=== PATIENT | female | born 1940 | race Caucasian/White ===

== ENCOUNTER 2016-09-22 13:24 | Day surgery (SDC) | payer MEDICARE, BC ==
[2016-09-22 13:37] VITALS: BP 157/76; PULSE 85; RESP 20; TEMP 97.4
== END 2016-09-22 14:50 | disposition home or self-care (01) ==
LOC: RADPROMAIN 13:24
PROVIDERS: ATTEND Internal Medicine Hematology & Oncology
DX: Z53.9 Procedure and treatment not carried out, unspecified reason (principal)

== ENCOUNTER → 2016-09-22 | Outpatient (CLI) | payer MEDICARE ==
[2016-09-22 11:21] LABS: Blood Urea Nitrogen 13 mg/dL (7-17); Non-African American GFR(MDRD) 53 (>60 ml/min/1.73 sqM)
--- NOTE | 2016-09-22 13:19 | CT ---
EXAMINATION TYPE: CT ChestAbdPelvis w con DATE OF EXAM: 09/22/2016 COMPARISON: NONE HISTORY: Rt supraclavicular swelling, history of colon and breast CA CT DLP: 1140.7 mGycm. Automated Exposure Control for Dose Reduction was Utilized. CONTRAST: CT scan of the thorax, abdomen and pelvis is performed with IV Contrast, patient injected with 100 mL of Visipaque 320. FINDINGS: LUNGS: Linear scarring left lower lobe is present near diaphragm. No suspicious parenchymal nodule or mass is present bilaterally. No pleural effusion or pneumothorax is noted. Tracheobronchial tree is patent. MEDIASTINUM: There are suspicious thoracic lymph nodes. For reference there is 1.6 x 1.4 cm prevascul ar lymph node on axial image 30. There additional suspicious lymph nodes in the paratracheal region m ost prominent on axial image 27. There are prominent but subcentimeter bilateral hilar, subcarinal, a nd AP window lymph nodes No cardiomegaly is seen. Trace pericardial effusion is present. There is na tive coronary artery calcification is seen which is noted marker for coronary artery disease. OTHER: Metallic BB is placed at area of clinical concern in right supraclavicular region on axial yolanda ge 8. There is 2.2 x 2.9 cm heterogeneous hypodense mass at this level seen on axial image 8. Just in ferior and medial to this there is second 2.2 x 2.6 cm heterogeneous mass on axial image 12. There ar e adjacent suspicious subcentimeter masses. Findings likely reflect metastatic adenopathy with some c entral necrotic portion felt present in smaller lesions. There are prominent but subcentimeter left s upraclavicular lymph node seen lateral to left thyroid gland. Left sided mastectomy is noted. No suspicious axillary adenopathy is seen. LIVER/GB: No significant abnormality is appreciated. PANCREAS: No significant abnormality is seen. SPLEEN: No significant abnormality is seen. ADRENALS: No significant abnormality is seen. KIDNEYS: There are staghorn type calculi in the right-sided collecting system. Largest measures 2.4 c m on long axis on axial image 77. There is fullness of right renal pelvis with mild suspicious mucosa l enhancement of the collecting system. No delayed excretion is seen. No significant hydronephrosis i s evident. Bladder is poorly distended with mild concentric wall thickening, correlate for cystitis a dvised. There is a circumaortic left renal vein which is normal variant. BOWEL: Oral contrast reaches level of rectum. There is postsurgical change from near-total colectomy. There is prominent anastomosis left mid to lower abdomen anteriorly on axial image 86. There is vent ral wall hernia just below umbilicus containing nonobstructive contrast-filled small bowel loop on ax ial image 95, neck of hernia is roughly 3.5 cm. GENITAL ORGANS: Uterus is anteverted in shape and within normal limits in size. Both ovaries are pres ent near axial image 98 and not suspiciously enlarged. There is small to moderate amount of free flui d in pelvic cul-de-sac on axial image 107, abnormal finding in postmenopausal female LYMPH NODES: There are suspicious mesenteric lymph nodes with some ill-defined fluid throughout the m id abdomen. For reference right mid abdominal mesenteric lymph node measures 1.5 x 1.1 cm on axial im age 76. More heterogeneous posterior left mid rounded density favor mesenteric adenopathy measures 2. 9 x 1.4 cm on axial image 78. There is additional prominent but subcentimeter retroperitoneal lymph n odes along the course of the aorta and IVC as well as iliac chain vessels. There is enlarged lymph no de right external iliac vein measuring 2.2 x 1.2 cm on axial image 104. OSSEOUS STRUCTURES: Osseous structures are demineralized. Underlying scoliosis is present. There is u nderlying multilevel disc space narrowing and vacuum disc phenomenon with spurring. Moderate joint sp cinthya loss and spurring both hips is present. OTHER: There is mild to moderate calcified atherosclerotic change of aorta extending branch vessels. Some mild increased fluid throughout the mesentery is present. IMPRESSION: 1. Corresponding to area of clinical concern there is abnormal adenopathy or metastatic disease prese nt. There is probable thoracic adenopathy as detailed above. There is probable mesenteric metastatic disease or adenopathy. There is probable right external iliac chain adenopathy. Consider correlating with outside PET/CT. Supraclavicular lymph nodes or masses can be sampled if desired for tissue confi rmation. 2. Staghorn-type right-sided renal calculus noted. Possible cystitis clinical correlation advised. 3. No bowel obstruction is seen. Ventral wall hernia containing bowel is noted. Postsurgical changes and colon are identified. 4. Mild mesenteric edema with more focal small to moderate fluid in pelvis of uncertain etiology. Con fruit vendor neoplastic source.
--- NOTE | 2016-09-22 15:28 | US ---
EXAMINATION TYPE: US biopsy lymph node DATE OF EXAM: 09/22/2016 HISTORY: Supraclavicular right-sided mass. FINDINGS: Maximal barrier technique was utilized. The skin overlying a suitable path to the patient' s mass was localized with ultrasound and the overlying skin prepped and draped. Ultrasound was utili zed with sterile technique. Lidocaine was used for local anesthesia. A skin adam was made with a sc alpel. An 18-gauge needle was advanced under direct ultrasound guidance and core specimen obtained o f the mass. Specimen submitted in formalin to Pathology. Following the procedure, hemostasis achiev ed and the patient is discharged in stable condition without complication. Impression: status POST ULTRASOUND GUIDED CORE BIOPSY OF right supraclavicular MASS, PATHOLOGY IS DOUGLAS SCHREIBER. THIS PROCEDURE IS PERFORMED BY THE UNDERSIGNED.
--- NOTE | 2016-09-22 17:39 | NM ---
EXAMINATION TYPE: NM bone scan whole body DATE OF EXAM: 09/22/2016 COMPARISON: NONE HISTORY: Colon cancer Delayed whole-body scanning was performed following the injection of 27.5 mCi Tc 99m MDP. Images acq uired 5 hours post injection. FINDINGS: There is focal increased uptake in the medial aspect of both knee joints. There is increased uptake a t both shoulder joints. Uptake in the thoracic and lumbar spine shows slight asymmetry consistent wit h variable minimal arthritic disease. The remainder of the exam is unremarkable. IMPRESSION: Increased uptake at the knee joints shoulder joints and in the spine are consistent with arthritic di sease. I have low suspicion of metastatic disease..
== END | disposition home or self-care (01) ==
LOC: RADXRMAIN 10:38
PROVIDERS: ATTEND Internal Medicine Hematology & Oncology
DX: C50.112 Malignant neoplasm of central portion of left female breast (principal); C41.3 Malignant neoplasm of ribs, sternum and clavicle; R94.8 Abnormal results of function studies of other organs and systems; R39.0 Extravasation of urine; N20.0 Calculus of kidney; Z98.890 Other specified postprocedural states
CPT/HCPCS: 88305; 82565; 84520; 88342; 88341; 76942; 38505; 71260; 74177; 36415; 78306; A9503; Q9967